=== PATIENT | male | born 1980 | race Caucasian/White ===

== ENCOUNTER 2023-08-21 15:11 | Emergency (ER) | payer OTHER, SELFPAY ==
[2023-08-21 15:22] VITALS: BP 136/92; PULSE 100; RESP 18; TEMP 36.6; O2SAT 100
--- NOTE | 2023-08-21 15:25 | ED.GENADULT ---
HPI - General Adult General Chief complaint: Chest Pain Stated complaint: Anxiety Time Seen by Provider: 08/21/23 15:26 Source: patient Mode of arrival: ambulatory Limitations: no limitations History of Present Illness HPI narrative: 42-year-old male presented for complaint of sudden onset of left chest heaviness associated with sweating and brief visual change while driving just prior to arrival. Reports heaviness to both arms, but states the left chest, shoulder, and upper arm are heavier than right. Also reports epigastric discomfort and his back feels tight. States he felt jittery and short of breath, which his improving. Denies chest 'pain' palpitations, nausea, vomiting. Took aleve. Pt is driving home to [place] from [facility]. Has not seen pcp in several years. Denies family hx cardiac problems. Review of Systems Review of Systems: CONSTITUTIONAL: Denies body aches, fever, chills, or sweats. EYES: Reports brief visual change, denies redness, or discharge. ENT: Denies rhinorrhea, congestion, sore throat, or otalgia. CARDIOVASCULAR: reports chest pain/'heavy' denies palpitations or edema. RESPIRATORY: Denies cough or dyspnea. GASTROINTESTINAL: reports left upper abdominal pain, Denies nausea, vomiting, or diarrhea. GENITOURINARY: Denies dysuria or hematuria. SKIN: Denies rash, itching, or wounds. MUSCULOSKELETAL: reports back pain, Denies joint pain, or myalgia. NEUROLOGIC: Denies headache, numbness, tingling, or weakness. PSYCH: Denies depression reports jittery/ anxiety. All systems reviewed & are unremarkable except as noted in HPI and below PMFSH Past Medical History Medical History (Updated 08/21/23 @ 16:11 by Meghan Zapata APRN) No pertinent past medical history Social History Social History (Updated 08/21/23 @ 15:41 by Meghan Zapata APRN) Smoking status: Never smoker Substance use type: marijuana Comments At time of signature, I have reviewed and agree with nursing past medical, surgical, social and family history unless otherwise noted. Please see nursing chart for further information. There is no relevant family history pertinent to the presenting complaint Exam Narrative: GENERAL: Well-appearing, and in no acute distress. HEAD: Normocephalic, atraumatic. EYES: EOMI. PERRLA. No redness or drainage. Conjunctivae normal. ENT: Mucous membranes pink and moist. No rhinorrhea. Throat normal. Uvula midline. NECK: Normal AROM. Supple. No lymphadenopathy. CHEST: No respiratory distress. Clear to auscultation. Nontender chest. HEART: Regular rate and rhythm. No murmur appreciated. Normal peripheral pulses. ABDOMEN: Epigastric discomfort, not reproducible Soft, nondistended, normal active bowel sounds. EXTREMITIES: Normal range of motion. No edema. SKIN: Warm, dry, no rash. Capillary refill normal. Normal skin turgor. NEURO: No focal deficits. Alert and oriented x3. Gait steady. PSYCH: Anxious. Course Course Emergency Course: Patient is aware of diagnosis, understands and agrees to treatment plan. Anticipatory guidance given. Patient agrees to follow-up as directed and is aware of reasons to seek care at the emergency department. Portions of this record may have been created with voice recognition software Level of Care: Express Care Visit Vital Signs Vital signs: Vital Signs Temperature 97.8 F 08/21/23 15:22 Pulse Rate 100 08/21/23 15:22 Respiratory Rate 18 08/21/23 15:22 Blood Pressure 136/92 H 08/21/23 15:22 Pulse Oximetry 100 08/21/23 15:22 Oxygen Delivery Room Air 08/21/23 15:22 Temperature 97.8 F 08/21/23 15:22 Pulse Rate 100 08/21/23 15:22 Respiratory Rate 18 08/21/23 15:22 Blood Pressure 136/92 H 08/21/23 15:22 Pulse Oximetry 100 08/21/23 15:22 Oxygen Delivery Room Air 08/21/23 15:22 Medical Decision Making MDM Narrative Medical decision making narrative: Discussed physical exam findings, and reviewed EK
--- NOTE | 2023-08-21 15:37 | ECG_ITS ---
Measurements Intervals [place] Rate: 97 P: 35 SC: 155 QRS: -19 QRSD: 90 T: -2 QT: 344 QTc: 439 Interpretive Statements SINUS RHYTHM INCOMPLETE RIGHT BUNDLE BRANCH BLOCK BORDERLINE T WAVE ABNORMALITY- INFERIOR LEADS BORDERLINE ECG NO PREVIOUS ECG AVAILABLE FOR COMPARISON Electronically Signed On 08-21-2023 20:22:10 [employer] by Daniel Murillo D.O.
[2023-08-21 16:22] VITALS: BP 142/102; PULSE 91; RESP 18; TEMP 37.1; O2SAT 99
== END 2023-08-21 16:25 | disposition short-term general hospital (02) ==
PROVIDERS: Emergency Provider Nurse Practitioner Family
DX: R07.9 Chest pain, unspecified (principal); I45.10 Unspecified right bundle-branch block
CPT/HCPCS: 93005; 99203; G0463

== ENCOUNTER 2023-08-21 16:35 | Emergency (ER) | payer OTHER, SELFPAY ==
[2023-08-21] VITALS (7 sets, daily range): BP systolic 130–149; BP diastolic 77–99; PULSE 95–102; RESP 14–37; TEMP 36.2; O2SAT 98–100
--- NOTE | ~2023-08-21 | XR_ITS ---
EXAMINATION: XR chest 2V Exam Date/Time: 08/21/2023 17:00 [employer] WORKER HISTORY: chest pain, WITH HEAVINESS Comparison: None. RESULT: Lines, tubes, and devices: None. Lungs and pleura: Clear. Cardiomediastinal silhouette: Unremarkable. Other: No acute osseous or upper abdominal finding. IMPRESSION: No acute cardiopulmonary process. Reviewed, dictated and finalized at location K. [employer] WORK[employer]
--- NOTE | 2023-08-21 16:41 | ECG_ITS ---
Measurements Intervals [place] Rate: 99 P: 39 [place]: 155 QRS: -5 QRSD: 92 T: 21 QT: 339 QTc: 435 Interpretive Statements SINUS RHYTHM INCOMPLETE RIGHT BUNDLE BRANCH BLOCK BORDERLINE ECG COMPARED TO ECG 08/21/2023 15:43:54 NO SIGNIFICANT CHANGES Electronically Signed On 08-21-2023 20:23:12 BIT BENDER by Daniel Murillo D.O.
[2023-08-21 16:58] LABS: Basophils Percent Auto 0.4 % (0.2-1.2); Eosinophils Percent Auto 0.3 % (0-4.4); Hematocrit 45.2 % (42.0-52.0); Immature Granulocyte Absolute 0.03 K/mm3 (0.00-0.031); Immature Granulocyte Percent A 0.3 % (0-0.5); Lymphocytes Absolute Auto 0.98 K/mm3 (0.9-3.2); Lymphocytes Percent Auto 9.6 % (18.3-44.2); Mean Corpuscular HGB Conc 33.2 g/dl (32-36); Mean Corpuscular Hemoglobin 29.8 pg (26-34); Mean Corpuscular Volume 89.9 fl (80-100); Mean Platelet Volume 9.3 fl (7.4-10.4); Monocytes Absolute Auto 0.5 K/mm3 (0.1-0.6); Monocytes Percent Auto 4.9 % (2.6-8.5); Neutrophils Absolute Auto 8.6 K/mm3 (1.3-6.7); Neutrophils Percent Auto 84.5 % (45.5-73.1); Platelet Count Result 239 k/mm3 (150-375); Red Blood Count 5.03 M/mm3 (4.6-6.20); White Blood Count 10.2 K/mm3 (4.5-10.0)
[2023-08-21 17:07] LABS: Alanine Aminotransferase 92 U/L (6-50); Albumin Level 4.5 g/dL (3.5-5.1); Alkaline Phosphatase 75 U/L (38-126); Anion Gap 11 mmol/L (8-16); Aspartate Amino Transferase 62 U/L (17-59); Bilirubin,Total 0.6 mg/dL (0.2-1.3); Blood Urea Nitrogen 11 mg/dL (9-20); Calcium 9.2 mg/dL (8.4-10.2); Carbon Dioxide 25 mmol/L (22-30); Chloride 100 mmol/L (98-107); Estimated CRCL calculation 116 ml/min; Estimated Glomerular Filt Rate > 60; Glucose 121 mg/dL (65-110); Lipase 92 U/L (23-300); Potassium 4.1 mmol/L (3.4-5.0); Sodium 136 mmol/L (137-145)
[2023-08-21 17:12] LABS: Prothrombin Time 13.1 Seconds (11.1-14.7)
[2023-08-21 17:13] LABS: Partial Thromboplastin Time 24.3 SECONDS (22.3-36.8)
[2023-08-21 17:19] LABS: Troponin I < 0.012 ng/mL (0.000-0.034)
--- NOTE | 2023-08-21 17:40 | ED.CHESTPAIN ---
HPI - Chest Pain General Chief Complaint: Chest Pain <Rosalind Carolina MD - Last Filed: 08/21/23 18:40> Stated Complaint: chest tightness <Rosalind Carolina MD - Last Filed: 08/21/23 18:40> Time Seen by Provider: 08/21/23 16:51 <Rosalind Carolina MD - Last Filed: 08/21/23 18:40> Source: patient and RN notes reviewed <Rosalind Carolina MD - Last Filed: 08/21/23 18:40> Mode of arrival: ambulatory <Rosalind Carolina MD - Last Filed: 08/21/23 18:40> Limitations: no limitations <Rosalind Carolina MD - Last Filed: 08/21/23 18:40> History of Present Illness HPI narrative: This is a 42 year old male who presents for evaluation of chest pain. Patient states he was driving in his car when he thought he was having a panic attack. He reports waves of feeling sweaty and anxious. He states he started having thoughts that something was going to happen to him. He states he was not having chest pain. He reports left chest heaviness that is constant for several months. He states that he has a physical job and his chest heaviness is not worse with activity. He denies shortness of breath. 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 He had similar episode 4 years ago and he states he had negative evaluation. He has not seen doctor since. <Rosalind Carolina MD - Last Filed: 08/21/23 18:40> MD complaint: chest pain <Rosalind Carolina MD - Last Filed: 08/21/23 18:40> Related Data Allergies/Adverse Reactions: Allergies Allergy/AdvReac Type Severity Reaction Status Date / Time No Known Allergies Allergy Verified 08/21/23 18:20 <Rosalind Carolina MD - Last Filed: 08/21/23 18:40> Review of Systems Review of Systems: All systems reviewed & are unremarkable except as noted in HPI and below <Rosalind Carolina MD - Last Filed: 08/21/23 18:40> [facility] Past Medical History Medical History: Medical History (Updated 08/21/23 @ 18:40 by Rosalind Carolina MD) No pertinent past medical history <Rosalind Carolina MD - Last Filed: 08/21/23 18:40> Surgical History Surgical History: Surgical History (Updated 08/21/23 @ 18:39 by Rosalind Carolina MD) H/O hernia repair <Rosalind Carolina MD - Last Filed: 08/21/23 18:40> Social History Social History: Social History Smoking status: Never smoker Substance use type: marijuana <Rosalind Carolina MD - Last Filed: 08/21/23 18:40> Exam Const: General: no acute distress and alert <Rosalind Carolina MD - Last Filed: 08/21/23 18:40> Nutritional Appearance: well nourished <Rosalind Carolina MD - Last Filed: 08/21/23 18:40> Orientation/consciousness: patient oriented x3 <Roaslind Carolina MD - Last Filed: 08/21/23 18:40> HENMT: Head: normal to inspection <Rosalind Carolina MD - Last Filed: 08/21/23 18:40> Eyes: EOM: EOMs intact bilaterally <Rosalind Carolina MD - Last Filed: 08/21/23 18:40> Neck: Neck: normal visual inspection <Rosalind Carolina MD - Last Filed: 08/21/23 18:40> Chest: Chest palpation & inspection: normal inspection of the chest <Rosalind Carolina MD - Last Filed: 08/21/23 18:40> Resp: Effort & Inspection: normal respiratory effort <Rosalind Carolina MD - Last Filed: 08/21/23 18:40> Auscultation: clear to auscultation bilaterally <Rosalind Carolina MD - Last Filed: 08/21/23 18:40> Cardio: Rate: regular rate <Rosalind Carolina MD - Last Filed: 08/21/23 18:40> Rhythm: regular rhythm <Rosalind Carolina MD - Last Filed: 08/21/23 18:40> Heart sounds: no murmurs <Rosalind Carolina MD - Last Filed: 08/21/23 18:40> GI: GI Palp: Yes Soft to palpation, No Tenderness to palpation present (GI), No Guarding due to palpation present (GI) and No Rigid due to palpation <Rosalind Carolina MD - Last Filed: 08/21/23 18:40> Auscultation: normal bowel sounds <Rosalind Carolina MD - Last Filed: 08/21/23 18:40>
[2023-08-21 17:57] LABS: D Dimer 0.36 ug/mL (<0.48)
[2023-08-21 20:01] LABS: Troponin I < 0.012 ng/mL (0.000-0.034)
== END 2023-08-21 20:30 | disposition home or self-care (01) ==
PROVIDERS: General Practice; Physician Assistant; Emergency Provider Emergency Medicine
DX: R07.9 Chest pain, unspecified (principal); I45.10 Unspecified right bundle-branch block
CPT/HCPCS: 36415; 71046; 80053; 83690; 84484; 85025; 85380; 85610; 85730; 93005; 99284